=== PATIENT | female | born 1970 | race Asian ===

== ENCOUNTER 2024-11-15 19:00 | Emergency (ER) | payer OTHER, SELFPAY ==
[2024-11-15 19:04] VITALS: BP 136/79; BMI 24.5
[2024-11-15 19:06] VITALS: BP 136/79
--- NOTE | 2024-11-15 19:13 | ED.GENMED ---
History of Present Illness
General
Chief Complaint: Abdominal Pain
Source: patient and physician (Dr. Houston, supervising editor news reel called upon patient's arrival to emergency department, stated she had a failed ERCP where the pancreatic duct was cannulated multiple times MRI showed biliary duct cyst)
Exam Limitations: none
Time Seen by Provider: 11/15/24 19:10
Nursing documentation reviewed up to this point in time: agreed with
History of Present Illness
History of Present Illness:
54-year-old female with epigastric abdominal pain that began several hours ago after having ERCP at [facility]. When she went home her son called the ambulance due to her epigastric pain.
Past History
Past History
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
Social History
Tobacco: Non-smoker
Alcohol: None
Drug: None
Living: with family
Review of Systems
Review of Systems
Allergies reviewed?: Yes
All Other Systems: Not applicable
Constitutional: Reports no symptoms
EENT: Reports no symptoms
Respiratory: Reports no symptoms
Cardiac: Reports no symptoms
ABD/GI: Reports abdominal pain, nausea and vomiting
: Reports no symptoms
Musculoskeletal: Reports no symptoms
Skin: Reports no symptoms
Neurological: Reports no symptoms
Endocrine: Reports no symptoms
Hematologic/Lymphatic: Reports no symptoms
Psychiatric: Reports no symptoms
Phy Exam
Physical Exam
Physical Exam:
Physical Exam
General: no apparent distress, afebrile
Neck: supple. no meningeal signs. normal posterior pharynx
Heart: s1/s2 regular rate and rhythm, no murmur. equal radial
pulses.
HEENT: Pupils equal round reactive to light, EOMI
Lungs: no acute respiratory distress. clear bilaterally
Abdomen: normal bowel sounds. diffuse abdominal tenderness. no CVAT
Neuro: alert and oriented. no focal neurological deficits cranial nerves II through XII intact
Skin: no rash
Psychiatric: well kept. interactive and cooperative
Extremities: no edema. no calf tenderness. negative homans. good distal pulses
Course
Orders/Labs/Results
Orders:
Orders
11/15/24 19:10
Iohexol [Omnipaque] See Protocol PO NOW STA
11/15/24 19:11
CT Abd/pel W Iv And Oral Contr Urgent
Comment:
Reason For Exam: epigastric abdominal pain s/p ERCP
11/15/24 19:12
IV Insert/Care/Rem.- Treatment PRN
11/15/24 19:18
Complete Blood Count/With Diff Urgent
Comprehensive Metabolic Panel Urgent
Lactic Acid Urgent
Lipase Urgent
PTT Urgent
Prothrombin Time Urgent
11/15/24 20:09
Ondansetron Injectable [Zofran] 4 mg .ROUTE .STK-MED ONE
11/15/24 20:10
Ondansetron Injectable [Zofran] 4 mg IV NOW STA
11/15/24 20:32
0.9% Sodium Chloride 1000 ml [Nss] 1,000 ml IV BOLUS
11/15/24 21:43
Piperacillin/Tazo 4.5 Gram [Zosyn] 4.5 gram in 100 ml IV NOW
11/15/24 23:39
Morphine Sulfate 4 mg IV NOW STA
Ondansetron Injectable [Zofran] 4 mg IV NOW STA
11/15/24 23:55
Lactic Acid Urgent
Abnormal Lab Results
11/15/24
19:18
WBC 14.3 H 10^3/uL
(4.8-10.8)
Abs Immat Gran (auto) 0.1 H 10^3/uL
(0-0.05)
Absolute Neuts (auto) 13.5 H 10^3/uL
(1.4-6.5)
Absolute Lymphs (auto) 0.6 L 10^3/uL
(1.2-3.4)
Neutrophils % 94.4 H %
(42.2-75.2)
Lymphocytes % 3.8 L %
(20.5-51.1)
Monocytes % 1.2 L %
(1.7-9.3)
Creatinine 0.5 L mg/dL
(0.6-1.0)
Glucose 177 H mg/dl
(70-99)
Lactic Acid 2.1 H mmol/L
(0.7-2.0)
Lipase > 4000 H* U/L
(23-300)
11/15/24 19:18
11/15/24 19:18
Vital Signs
Initial and Last Documented VS:
Initial Vital Signs
Temp Pulse Resp BP Pulse Ox
98.4 F 82 24 136/79 97
11/15/24 19:04 11/15/24 19:04 11/15/24 19:04 11/15/24 19:04 11/15/24 19:04
Last Documented Vital Signs
Temp Pulse Resp BP Pulse Ox
98.4 F 92 21 137/75 97
11/15/24 19:04 11/15/24 21:30 11/15/24 21:30 11/15/24 20:00 11/15/24 21:30
MDM/Problems Addressed
Differential Diagnosis Includes:
Bowel perforation, pancreatitis
MDM/Problems Addressed:
54-year-old female with pancreatitis, possible duodenal perforation status post ERCP. Discussed with gastroenterology and general surgery Dr. Freeman, who except to hospital at [facility]. IV fluids, IV Zosyn, n.p.o.
Chronic conditions affecting care: Previous abdomnial surgery
Acute Exacerbation and/or Progression of Chronic Illness: Previous abdomnial surgery
*Radiology
Radiology exam reviewed: radiology read reviewed (CT abdomen pelvis shows common bile duct dilatation, free air and fluid in abdomen concerning for perforation)
*Pulse Oximetry
Patient hypoxic: no
*Washtub Worker Helper Interpretation
Rate: normal
Interpretation: normal
Heart Rate: 95
Rhythm: sinus
*Critical Care Note
Total Time (30-74mins, 75-104mins- exclusive of procedures): 45
comment:
Critical care statement: A total of 45 minutes of critical care time was provided for this patient. This includes management of unstable vital signs, evaluation of the patient at bedside, reviewing the patient's pertinent medical records, discussion
with consultants, review of old EKGs and review of pertinent medical records. This time with separate from time utilized to perform the aforementioned documented procedures
Patient Management
Social determinants of health affecting care: Living situation
Discussion with other providers: Patch Press Operator (GI surgery Dr. Freeman)
Escalation/DeEscalation of care consider admission/obs:
transfer indicated
ED Attending Note
-
Portions of this chart may have been created with voice recognition software.� Occasional wrong word or��sound alike� substitutions may have occurred due to the inherent limitations of voice recognition software.
Discharge Plan
Departure
Patient Disposition: Acute Care Hospital
Date of Disposition: 11/15/24
Time of Disposition: 21:41
Patient with high blood pressure during this ER visit?: Yes
Condition: Fair
Discharge Problem:
Acute pancreatitis, Free intraperitoneal air
Prescriptions:
No Action
omeprazole 20 mg Capsule,Delayed Release(Dr/Ec)
20 mg PO NOON
acetaminophen 325 mg Tablet
650 mg PO Q4HPRN PRN (Reason: MILD PAIN)
lutein 6 mg Capsule
6 mg PO DAILY
Visbiome 112.5 billion cell Capsule
1 cap PO DAILY
Referrals:
Jasen Centeno, DO [Family Provider] -
Hospital Transfer
Other hospital: [facility]
I certify that the patient requires transfer: Yes
Discussed case with accepting physician: Lydia
Reason for transfer: higher level of care, specialties available and continuity of care PCP
Interventions
Interventions:
*Risk Screen - Suicide Last Done: 11/15/24 19:04
*General Assessment Last Done: 11/15/24 19:04
*Neglect/Abuse Screening Last Done: 11/15/24 19:04
*ED COVID-19 Vaccine History Last Done: 11/15/24 19:04
WY-Gfhmek-Rctokicomg Assessment Last Done: 11/15/24 19:20
Discharge Date and Time
Print Language: THAI
[2024-11-15] MEDS: OMNIPAQUE 50 ML PO (19:24)
[2024-11-15 19:42] LABS: % Basophils 0.1 % (0-2); % Immature Granulocytes 0.5 % (0-0.5); % Lymphocytes 3.8 % (20.5-51.1); % Monocytes 1.2 % (1.7-9.3); % Neutrophils 94.4 % (42.2-75.2); Absolute Immature Granulocytes 0.1 10^3/uL (0-0.05); Absolute Lymphocytes 0.6 10^3/uL (1.2-3.4); Absolute Monocytes 0.2 10^3/uL (0.1-0.6); Absolute Neutrophils 13.5 10^3/uL (1.4-6.5); Hematocrit 39.9 % (37.0-47.0); Hemoglobin 13.7 g/dL (12.0-16.0); Mean Corp Hgb Conc. 34.3 g/dL (33.0-37.0); Mean Corpuscular Hgb 30.4 pg (27.0-31.0); Mean Corpuscular Volume 88.5 fL (81.0-99.0); Mean Platelet Volume 9.5 fL (7.4-10.4); Nucleated Red Blood Cells % 0 %; Platelet Count 272 10^3/uL (130-400); Red Blood Cell Count 4.51 10^6/uL (4.20-5.40); Red Cell Dist. Width 12.1 % (11.5-14.5); White Blood Cell Count 14.3 10^3/uL (4.8-10.8)
[2024-11-15 19:48] LABS: APTT 23.4 Sec (23.4-35.0); INR 0.98; PT 13.3 Sec (11.4-14.6)
[2024-11-15 19:56] LABS: Lactic Acid 2.1 mmol/L (0.7-2.0)
[2024-11-15 20:00] VITALS: BP 137/75
[2024-11-15 20:06] LABS: ALT (SGPT) 20 U/L (0-35); AST (SGOT) 28 U/L (14-36); Albumin 4.9 g/dl (3.5-5.0); Alkaline Phosphatase 79 U/L (38-126); Blood Urea Nitrogen 17 mg/dl (7-17); Calcium 9.5 mg/dl (8.4-10.2); Carbon Dioxide 26 mmol/L (22-30); Chloride 104 mmol/L (98-107); Estimated Creatinine Clearance 83 ml/min; Glucose 177 mg/dl (70-99); Potassium 3.9 mmol/L (3.5-5.1); Sodium 140 mmol/L (135-145); Total Bilirubin 0.8 mg/dl (0.2-1.3); Total Protein 7.7 g/dl (6.3-8.2); eGFR > 60.00
[2024-11-15] MEDS: ZOFRAN 4 MG IV (20:10)
[2024-11-15 20:49] LABS: Lipase > 4000 U/L (23-300)
[2024-11-15] MEDS: NSS 1000 IV (21:11)
[2024-11-15] MEDS: ZOSYN 100 IV (21:45)
[2024-11-15] MEDS: MORPHINE SULFATE 4 MG IV (23:57)
[2024-11-16 00:19] LABS: Lactic Acid 1.5 mmol/L (0.7-2.0)
[2024-11-16 02:36] VITALS: BP 172/93
[2024-11-16 03:00] VITALS: BP 166/91
== END 2024-11-16 03:30 | disposition short-term general hospital (02) ==
LOC: EMR 19:00
PROVIDERS: EMERGENCY PHYSICIAN Emergency Medicine; FAMILY PHYSICIAN Family Medicine
DX: K85.90 Acute pancreatitis without necrosis or infection, unspecified (principal); K66.8 Other specified disorders of peritoneum; R03.0 Elevated blood-pressure reading, without diagnosis of hypertension
CPT/HCPCS: 99291; 96374; 96375 ×2; 96361; 74177; 80053; 83605; 83690; 85025; 85610; 85730; Q9967